=== PATIENT | female | born 1980 | race Caucasian/White ===

== ENCOUNTER 2020-10-08 20:56 | Emergency (ER) | payer MEDICAID ==
[~2020-10-08] VITALS: Ht 172.7 cm; Wt 90.0 kg
[2020-10-08 21:01] VITALS: BP 123/72
== END 2020-10-08 22:38 | disposition home or self-care (01) ==
LOC: ED 22:00
DX: S30.814A Abrasion of vagina and vulva, initial encounter (principal); F17.210 Nicotine dependence, cigarettes, uncomplicated; X58.XXXA Exposure to other specified factors, initial encounter; Y93.89 Activity, other specified; Y92.89 Other specified places as the place of occurrence of the external cause; Y99.8 Other external cause status
CPT/HCPCS: 99283